=== PATIENT | male | born 1995 | race African-American/Black ===

== ENCOUNTER 2018-05-16 19:17 | Emergency (ER) | payer SELFPAY ==
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
[2018-05-16 19:33] VITALS: BP 127/73; PULSE 83; TEMP 98.4; BMI 23.6
[2018-05-16] MEDS ORDERED: DIPHTH,PERTUSS(ACELL),TET 0.5 ML DISP.SYRIN IM ONE (19:51)
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
== END 2018-05-16 22:09 | disposition home or self-care (01) ==
LOC: JER 19:17
PROC: 0JQ10ZZ Repair Face Subcutaneous Tissue and Fascia, Open Approach (ICD-10-PCS; principal; 2018-05-16)
PROC: 3E0234Z Introduction of Serum, Toxoid and Vaccine into Muscle, Percutaneous Approach (ICD-10-PCS; 2018-05-16)
DX: S01.81XA Laceration without foreign body of other part of head, initial encounter (principal); S40.812A Abrasion of left upper arm, initial encounter; S40.811A Abrasion of right upper arm, initial encounter; V18.0XXA Pedal cycle driver injured in noncollision transport accident in nontraffic accident, initial encounter; Y92.410 Unspecified street and highway as the place of occurrence of the external cause; Y93.55 Activity, bike riding; Y99.8 Other external cause status
CPT/HCPCS: 72125-TC; 90715; 99282-25

== ENCOUNTER 2018-05-21 13:49 | Emergency (ER) | payer SELFPAY ==
[2018-05-21 14:04] VITALS: BP 126/78; PULSE 54; TEMP 98.2; BMI 25.8
--- NOTE | 2018-05-21 15:49 | PDOC ---
Suture Removal/Wound Check HPI - History of Present Illness Chief Complaint: Suture/Staple Removal(Here) Stated Complaint: SUTURE/STAPLE REMOVAL Time Seen by Provider: 05/21/18 15:20 History Source: Yes: Patient Exam Limitations: Yes: No Limitations Treated at: [facility] Date of Last ED visit: 05/16/18 - Previous ED Treatment Type of procedure performed on last visit: Yes: Laceration Repair Tetanus Immunization: Yes: Given at last ED visit Past History - Past Medical History Allergies/Adverse Reactions: Allergies Allergy/AdvReac Type Severity Reaction Status Date / Time No Known Allergies Allergy Verified 05/16/18 19:23 Home Medications: Ambulatory Orders Cephalexin Monohydrate [Keflex -] 500 mg PO Q8H 5 Days #15 capsule 05/16/18 COPD: No - Immunization History Immunization Up to Date: Yes - Suicide/Smoking/Psychosocial Hx Smoking History: Never smoked Hx Alcohol Use: No Drug/Substance Use Hx: No Substance Use Type: None *Physical Exam - Vital Signs Last Vital Signs Temp Pulse Resp BP Pulse Ox 98.2 F 54 L 16 126/78 99 05/21/18 14:02 05/21/18 14:02 05/21/18 14:02 05/21/18 14:02 05/21/18 14:02 Medical Decision Making - Medical Decision Making A/P: 22 y/o male with well healed laceration to chin. Took quite a bit of hydrogen peroxide to remove scabbed tissue. 11 sutures removed. Wound margins remained intact. Bacitracin applied and wound covered. Instructed the patient to clean wound. THe patient verbalizes instructions, has no further questions and is awaiting discharge. *DC/Admit/Observation/Transfer Diagnosis at time of Disposition: Encounter for removal of sutures - Discharge Dispostion Disposition: HOME Condition at time of disposition: Good - Referrals - Patient Instructions Printed Discharge Instructions: DI for Suture Removal - Post Discharge Activity
== END 2018-05-21 16:00 | disposition home or self-care (01) ==
LOC: JERFT 13:49
DX: Z48.817 Encounter for surgical aftercare following surgery on the skin and subcutaneous tissue (principal); Z48.02 Encounter for removal of sutures
CPT/HCPCS: 99281-25